=== PATIENT | male | born 1975 | race Caucasian/White ===

== ENCOUNTER 2018-03-22 08:40 | Outpatient (RCR) | payer OTHER ==
[~2018-03-22 08:40] MED LIST: ACHD5005 PO; ALBU0.8322 IH; ALPR0.5T7; FAMO20TA5 PO; GBPN100C; HYDR-3720 PO; LISI10TA2; LISI5TAB; MELO7.5T; METH500T35 PO; MTF500T PO; NF-ESOM40C PO; OMEP40CA36 PO; PNT40TEC PO; PRD20T PO; PRD5T PO; ROSU20TA PO; SCR1T1 PO; SULF1TAB35 PO; TRM50T PO; TYLOX; WRF10T
== END 2018-05-01 14:54 | disposition home or self-care (01) ==
PROVIDERS: ATTEND Nurse Practitioner Family
DX: M54.41 Lumbago with sciatica, right side (principal); M54.42 Lumbago with sciatica, left side; G89.29 Other chronic pain

== ENCOUNTER 2023-04-14 17:07 | Emergency (ER) | payer BC ==
[~2023-04-14] VITALS: Ht 175.5 cm; Wt 138.6 kg
[~2023-04-14 17:07] MED LIST changes: -ROSU20TA PO; +ROSU20TA2 PO
--- NOTE | 2023-04-14 17:28 | ED Lower Extremity ---
General Chief Complaint: Lower Extremity Stated Complaint: RIGHT LEG PAIN Nursing Triage Note: pt to ed with c/o intermittent right calf pain for a month and a half. states previous dvt about 12-13 years ago and he is just worried about the pain. Source: patient Exam Limitations: no limitations History of Present Illness Date Seen by Provider: Apr 14, 2023 Time Seen by Provider: 17:25 Initial Comments Patient is a 47-year-old male who presents to the ED with right calf pain. Right calf pain for the past month and a half. Denies of any specific injury. Patient states he has been doing calf raises but cannot recall any specific injury. States he had a DVT 12 to 14 years ago secondary injury. No known blood disorders. Denies any swelling, bruising. Does have varicose vein. Patient does have chronic nerve pain in his right leg secondary to previous injury. Denies fever, chills, chest pain, cough, shortness of breath. Allergies and Home Medications Allergies Coded Allergies: Shellfish (Verified Allergy, Unknown, 07/02/08) iodine (Verified Allergy, Unknown, 06/18/08) Patient Home Medication List Home Medication List Reviewed: Yes Hydrocodone Bit/Acetaminophen (Lortab 5 Mg Tablet) 1 Each Tablet, 1 EACH PO Q4H, (Reported) Entered as Reported by: MAKSIM DE GUZMAN on 10/12/13 1401 Lisinopril (Lisinopril) 10 Mg Tablet, 10, (Reported) Entered as Reported by: ZACHARY EPPS on 07/02/14 1824 Rosuvastatin Calcium (Crestor) 20 Mg Tablet, 20 MG PO HS, (Reported) Entered as Reported by: URBANO BELTRAN on 12/22/15 1459 Review of Systems Constitutional: No chills, No diaphoresis EENTM: No ear pain, No blurred vision, No double vision Respiratory: No cough Cardiovascular: No chest pain Gastrointestinal: No abdominal pain, No diarrhea, No nausea, No vomiting Genitourinary: No decreased output, No discharge Musculoskeletal: No back pain, No joint pain; muscle pain Skin: No change in color, No change in hair/nails All Other Systems Reviewed Negative Unless Noted: Yes Past Cutwzew-Plqkdz-Jwpibm Hx Patient Social History Tobacco Use?: No Substance use?: No Alcohol Use?: No Immunizations Up To Date Tetanus Booster (TDap): More than 5yrs Seasonal Allergies Seasonal Allergies: No Past Medical History Surgery/Hospitalization HX: dvt, back pain, dm appy Appendectomy, Orthopedic Hypertension Reproductive Disorders: No Gastroesophageal Reflux Chronic Back Pain Anxiety Family Medical History Heart Disease, Diabetes, Hypertension Physical Exam Vital Signs Vital Signs - First Documented 04/14/23 17:16 Temp 36.6 Pulse 89 Resp 18 B/P (MAP) 151/84 (106) Pulse Ox 98 Capillary Refill : Less Than 3 Seconds Height, Weight, BMI Height: 5'9" Weight: 355lbs. oz. [id number]; 44.00 BMI Method:Stated General Appearance: WD/WN, no apparent distress HEENT: PERRL/EOMI, normal ENT inspection, TMs normal, pharynx normal Neck: non-tender, full range of motion, supple Cardiovascular: regular rate, rhythm, no edema, no gallop, no JVD Respiratory: chest non-tender, lungs clear, normal breath sounds, no respir atory distress, no accessory muscle use Gastrointestinal: normal bowel sounds, non tender, soft Back: normal inspection, no CVA tenderness, no vertebral tenderness Legs: right leg other (No calf tenderness, swelling or bruising. 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, no motor/sensory deficits, alert, normal mood/affect, oriented x 3 Skin: normal color Progress/Results/Core Measures Results/Orders Lab Results Laboratory Tests Test 04/14/23 17:32 Range/Units D-Dimer < 0.27 0.00-0.49 UG/ML Sodium Level 139 135-145 MMOL/L Potassium Level 3.8 3.6-5.0 MMOL/L Chloride Level 104 98-107 MMOL/L Carbon Dioxide Level 22 21-32 MMOL/L Anion Gap 13 5-14 MMOL/L Blood Urea Nitrogen 15 7-18 MG/DL Creatinine 0.84 0.60-1.30 MG/DL Estimat Glomerular Filtration Rate 109 BUN/Creatinine Ratio 18 Glucose Level 198 H 70-105 MG/DL Calcium Level 8.8 8.5-10.1 MG/DL My Orders Orders - OBANDO,DEBBIE A PA Fibrin Degradation Products (04/14/23 17:24) Basic Metabolic Panel (04/14/23 17:24) Vital Signs/I&O 04/14/23 04/14/23 17:16 18:03 Temp 36.6 36.6 Pulse 89 89 Resp 18 18 B/P (MAP) 151/84 (106) 151/84 Pulse Ox 98 98 Blood Pressure Mean: 106 Departure Communication (PCP) Differential diagnoses muscle strain, DVT. Patient with history of DVT right leg. Calf pain for the past month and a half. No swelling bruising or redness. Due to his history of DVT and not having ultrasound on the weekends did or jennifer a D-dimer to rule out DVT. He has no swelling or bruising. No specific tenderness. Likely more calf strain. Patient denies any chest pain or shortness of breath. D-dimer was negative. Unlikely DVT and more of muscle strain. Recommend stretching, ice, anti-inflammatories. Follow-up your PCP in 2 to 3 days for reevaluation. Patient agrees a plan of action. Impression Primary Impression: Calf pain Disposition: HOME, SELF-CARE Condition: Stable Departure-Patient Inst. Decision time for Depature: 18:01 Referrals: ZOLTAN BAILON APRN (PCP/Family) Primary Care Physician Patient Instructions: Muscle Strain (DC) DEBBIE OBANDO Apr 14, 2023 17:28
[2023-04-14 17:49] LABS: POTASSIUM 3.8 MMOL/L (3.6-5.0)
[2023-04-14 17:50] LABS: CALCIUM 8.8 MG/DL (8.5-10.1)
[2023-04-14 17:54] LABS: CREATININE SERUM 0.84 MG/DL (0.60-1.30)
[2023-04-14 18:03] VITALS: BP 151/84
== END 2023-04-14 18:04 | disposition home or self-care (01) ==
LOC: EDUNIT# 17:07 → ER 17:12
DX: M79.661 Pain in right lower leg (principal)
CPT/HCPCS: 36415; 80048; 85379; 99281

== ENCOUNTER 2023-05-26 19:39 | Emergency (ER) | payer BC ==
[~2023-05-26] VITALS: Ht 175.3 cm; Wt 140.0 kg
[2023-05-26] MEDS ORDERED: NS IV 500 ML 500 ML IV ONE (20:00)
[2023-05-26] MEDS ORDERED: meTOprolol TARTRATE (IR) 25 MG TABLET PO ONE (20:00)
--- NOTE | 2023-05-26 20:12 | ED General ---
General Chief Complaint: Cardiac/General Problems Stated Complaint: BLOOD PRESSURE PROBLEMS Source of Information: Patient Exam Limitations: No Limitations History of Present Illness Date Seen by Provider: May 26, 2023 Time Seen by Provider: 19:53 Initial Comments Here with report of elevated blood pressure. States that he was out in [place] today and was transferring water from 1 [address] to the other and had walk his way through the swamp which was pretty significant physical activity. He got home and had 3 chili dogs. Afterwards he noted that his face got hot in his chest got hot and he checked his blood pressure and it was 160s over 100 range. He took his lisinopril 40 mg tablet which she is on for blood pressure. Usually takes that a little later in the evening. He presented here for concerns of high blood pressure and also concerns about dehydration since he was out in the field all day. States that he had this kind of flushness and hot feeling prior when he was dehydrated. Denies chest pain, nausea, vomiting, weakness or breathing problems. Denies headache or vision problems. Timing/Duration: 1 Hour Severity: Moderate Associated Systoms: No Chest Pain, No Cough, No Fever/Chills, No Headaches, No Nausea/Vomiting, No Shortness of Air, No Weakness Allergies and Home Medications Allergies Coded Allergies: Shellfish (Verified Allergy, Unknown, 07/02/08) iodine (Verified Allergy, Unknown, 06/18/08) Patient Home Medication List Home Medication List Reviewed: Yes Hydrocodone Bit/Acetaminophen (Lortab 5 Mg Tablet) 1 Each Tablet, 1 EACH PO Q4H, (Reported) Entered as Reported by: MAKSIM DE GUZMAN on 10/12/13 1401 Lisinopril (Lisinopril) 10 Mg Tablet, 10, (Reported) Entered as Reported by: ZACHARY EPPS on 07/02/14 1824 Rosuvastatin Calcium (Crestor) 20 Mg Tablet, 20 MG PO HS, (Reported) Entered as Reported by: URBANO BELTRAN on 12/22/15 6049 Review of Systems Review of Systems Constitutional: No chills, No fever EENTM: no symptoms reported Respiratory: no symptoms reported Cardiovascular: see HPI Gastrointestinal: see HPI Musculoskeletal: see HPI Skin: see HPI Past Mrldafw-Cnvlud-Zwsflf Hx Patient Social History Tobacco Use?: No Substance use?: No Immunizations Up To Date Tetanus Booster (TDap): More than 5yrs Influenza Vaccine Up-to-Date: No; Not Current First/Initial COVID19 Vaccinat: INITIAL DOSE COMPLETED Seasonal Allergies Seasonal Allergies: No Past Medical History Surgery/Hospitalization HX: dvt, back pain, dm, GASTRITIS appy Surgeries: Yes Appendectomy, Orthopedic Cardiac: Yes Hypertension Reproductive Disorders: No Gastrointestinal: Yes Gastroesophageal Reflux Musculoskeletal: Yes Chronic Back Pain Psychosocial: Yes Anxiety Family Medical History Reviewed Nursing Family Hx Heart Disease, Diabetes, Hypertension Physical Exam Vital Signs Vital Signs - First Documented 05/26/23 19:51 Temp 37.2 Pulse 93 Resp 18 B/P (MAP) 159/93 (115) Pulse Ox 99 O2 Delivery Room Air Capillary Refill : Height, Weight, BMI Height: 5'9" Weight: 355lbs. oz. 161.997561ma; 44.00 BMI Method:Stated General Appearance: No Apparent Distress, WD/WN Neck: Non Tender, Supple Respiratory: Lungs Clear, Normal Breath Sounds Cardiovascular: Regular Rate, Rhythm, No Murmur Gastrointestinal: Non Tender, Soft Extremity: Normal Range of Motion, Non Tender Neurologic/Psychiatric: Alert, Oriented x3 Skin: Warm/Dry, Other (Flush to face, ears and upper chest) Progress/Results/Core Measures Suspected Sepsis SIRS Temperature: Pulse: Respiratory Rate: Laboratory Tests 05/26/23 20:05: White Blood Count 8.3 Blood Pressure / Mean: Laboratory Tests 05/26/23 20:05: Creatinine 0.92, Platelet Count 312, Total Bilirubin 2.7H Results/Orders Lab Results Laboratory Tests Test 05/26/23 20:05 Range/Units White Blood Count 8.3 4.3-11.0 10^3/uL Red Blood Count 5.24 4.30-5.52 10^6/uL Hemoglobin 14.5 13.3-17.7 g/dL Hematocrit 44 40-54 % Mean Corpuscular Volume 84 80-99 fL Mean Corpuscular Hemoglobin 28 25-34 pg Mean Corpuscular Hemoglobin Concent 33 32-36 g/dL Red Cell Distribution Width 14.4 10.0-14.5 % Platelet Count 312 130-400 10^3/uL Mean Platelet Volume 9.1 9.0-12.2 fL Immature Granulocyte % (Auto) 0 % Neutrophils (%) (Auto) 60 42-75 % Lymphocytes (%) (Auto) 31 12-44 % Monocytes (%) (Auto) 7 0-12 % Eosinophils (%) (Auto) 1 0-10 % Basophils (%) (Auto) 1 0-10 % Neutrophils # (Auto) 5.0 1.8-7.8 10^3/uL Lymphocytes # (Auto) 2.6 1.0-4.0 10^3/uL Monocytes # (Auto) 0.6 0.0-1.0 10^3/uL Eosinophils # (Auto) 0.1 0.0-0.3 10^3/uL Basophils # (Auto) 0.1 0.0-0.1 10^3/uL Immature Granulocyte # (Auto) 0.0 0.0-0.1 10^3/uL Sodium Level 138 135-145 MMOL/L Potassium Level 4.3 3.6-5.0 MMOL/L Chloride Level 101 98-107 MMOL/L Carbon Dioxide Level 21 21-32 MMOL/L Anion Gap 16 H 5-14 MMOL/L Blood Urea Nitrogen 15 7-18 MG/DL Creatinine 0.92 0.60-1.30 MG/DL Estimat Glomerular Filtration Rate 104 BUN/Creatinine Ratio 16 Glucose Level 146 H 70-105 MG/DL Calcium Level 9.7 8.5-10.1 MG/DL Corrected Calcium 8.5-10.1 MG/DL Total Bilirubin 2.7 H 0.1-1.0 MG/DL Aspartate Amino Transf (AST/SGOT) 35 H 5-34 U/L Alanine Aminotransferase (ALT/SGPT) 49 0-55 U/L Alkaline Phosphatase 55 40-136 U/L Troponin I < 0.028 <0.028 NG/ML Total Protein 7.9 6.4-8.2 GM/DL Albumin 4.9 H 3.2-4.5 GM/DL My Orders Orders - ABHISHEK MEDINA MD Ed Iv/Invasive Line Start (05/26/23 20:00) Ekg Tracing (05/26/23 20:00) Monitor-Rhythm Ecg Trace Only (05/26/23 20:00) Cbc And Automated Diff (05/26/23 20:00) Comprehensive Metabolic Panel (05/26/23 20:00) Troponin I Demian (05/26/23 20:00) Ed Iv/Invasive Line Start (05/26/23 20:00) Ns Iv 500 Ml (Ns Iv 500 Ml) (05/26/23 20:00) Metoprolol Tartrate (Ir) Tab (05/26/23 20:00) Medications Given in ED Current Medications Medications Dose Ordered Sig/Yoav Route Start Time Stop Time Status Last Admin Dose Admin Metoprolol Tartrate 25 mg ONCE ONCE PO 05/26/23 20:00 05/26/23 20:03 DC 05/26/23 20:15 25 MG Sodium Chloride 500 ml @ 0 mls/hr Q0M ONCE IV 05/26/23 20:00 05/26/23 20:03 DC 05/26/23 20:15 999 MLS/HR Vital Signs/I&O 05/26/23 19:51 Temp 37.2 Pulse 93 Resp 18 B/P (MAP) 159/93 (115) Pulse Ox 99 O2 Delivery Room Air Capillary Refill : Progress Note : Progress Note Seen and evaluated. IV, labs including CBC, CMP and troponin ordered. We will get EKG. Normal saline 500 mL bolus and metoprolol 25 mg p.o. Monitor patient. Differential diagnosis includes uncontrolled hypertension, cardiac event, dehydration, electrolyte abnormality 2012: EKG normal as noted below. 100: CBC reviewed and grossly normal. CMP reviewed and shows mildly elevated glucose with normal electrolytes and elevated total bilirubin which seems chronic. Troponin negative. Patient's blood pr essure currently 120s over 70s to the 130s over 80s and he is feeling much better. He does admit to eating potato chips as well today. I believe his hypertension is related to elevated sodium with his diet today which is not his normal diet. Overall he feels better. Discharged home with return precautions. Patient verbalized understanding instructions and agreement with plan. ECG Initial ECG Impression Date: May 26, 2023 Initial ECG Impression Time: 20:09 Initial ECG Rate: 88 Initial ECG Rhythm: Normal Sinus Initial ECG Impression: Normal Comment Sinus rhythm with occasional premature atrial contraction. Normal but rightward axis. No evidence of ST elevation [place]. Interpreted by me. Departure Impression Primary Impression: High blood pressure Qualified Codes: I10 - Essential (primary) hypertension Additional Impression: Total bilirubin, elevated Disposition: 01 HOME, SELF-CARE Condition: Improved Departure-Patient Inst. Decision time for Depature: 21:05 Referrals: ZOLTAN BAILON APRN (PCP) Primary Care Physician Patient Instructions: High blood pressure in adults, Low Salt Diet Add. Discharge Instructions: All discharge instructions reviewed with patient and/or family. Voiced understanding. Drink an adequate amount of fluids and eat a normal diet that is low in salt. Follow-up with your doctor this week for recheck and further evaluation. Return for worse pain, fever, vomiting, weakness, breathing problems or other concerns as needed. Your total bilirubin was elevated slightly over your normal level and you can get this rechecked with your doctor. ABHISHEK MEDINA MD May 26, 2023 20:12
[2023-05-26 20:14] LABS: BASOPHILS # (AUTO) 0.1 10^3/uL (0.0-0.1); BASOPHILS % (AUTO) 1 % (0-10); EOSINOPHILS # (AUTO) 0.1 10^3/uL (0.0-0.3); EOSINOPHILS % (AUTO) 1 % (0-10); HEMATOCRIT 44 % (40-54); HEMOGLOBIN 14.5 g/dL (13.3-17.7); LYMPHOCYTES # (AUTO) 2.6 10^3/uL (1.0-4.0); LYMPHOCYTES % (AUTO) 31 % (12-44); MEAN CORPUSCULAR HEMOGLOBIN 28 pg (25-34); MEAN CORPUSCULAR HGB CONC 33 g/dL (32-36); MEAN CORPUSCULAR VOLUME 84 fL (80-99); MEAN PLATELET VOLUME 9.1 fL (9.0-12.2); MONOCYTES # (AUTO) 0.6 10^3/uL (0.0-1.0); MONOCYTES % (AUTO) 7 % (0-12); NEUTROPHILS % (AUTO) 60 % (42-75); PLATELET COUNT 312 10^3/uL (130-400); WHITE BLOOD COUNT 8.3 10^3/uL (4.3-11.0)
[2023-05-26 20:26] LABS: ALBUMIN 4.9 GM/DL (3.2-4.5); CHLORIDE 101 MMOL/L (98-107); POTASSIUM 4.3 MMOL/L (3.6-5.0); SODIUM 138 MMOL/L (135-145)
[2023-05-26 20:28] LABS: CALCIUM 9.7 MG/DL (8.5-10.1)
[2023-05-26 20:29] LABS: GLUCOSE 146 MG/DL (70-105); TOTAL PROTEIN 7.9 GM/DL (6.4-8.2)
[2023-05-26 20:30] LABS: CARBON DIOXIDE 21 MMOL/L (21-32)
[2023-05-26 20:31] LABS: BILIRUBIN,TOTAL 2.7 MG/DL (0.1-1.0)
[2023-05-26 20:32] LABS: ALKALINE PHOSPHATASE 55 U/L (40-136)
[2023-05-26 20:33] LABS: CREATININE SERUM 0.92 MG/DL (0.60-1.30); GFR ESTIMATED 104
[2023-05-26 20:34] LABS: BUN/CREATININE RATIO 16
[2023-05-26 20:35] LABS: ALANINE AMINOTRANSFERASE 49 U/L (0-55)
[2023-05-26 21:19] VITALS: BP 139/81
== END 2023-05-26 21:19 | disposition home or self-care (01) ==
LOC: EDUNIT# 19:39 → ER 19:41
DX: I10 Essential (primary) hypertension (principal); E80.7 Disorder of bilirubin metabolism, unspecified; E11.9 Type 2 diabetes mellitus without complications; Z28.311 Partially vaccinated for COVID-19
CPT/HCPCS: 36415; 80053; 84484; 85025; 93005; 93041

== ENCOUNTER 2023-06-14 13:40 | Outpatient (RCR) | payer BC | END 2023-06-19 | disposition home or self-care (01) | PROVIDERS: ATTEND Nurse Practitioner Family | DX: M79.2 Neuralgia and neuritis, unspecified (principal); M21.371 Foot drop, right foot; M54.50 Low back pain, unspecified; I10 Essential (primary) hypertension; E11.9 Type 2 diabetes mellitus without complications ==

== ENCOUNTER 2023-06-21 13:47 | Outpatient (RCR) | payer BC | END 2023-07-16 16:04 | disposition home or self-care (01) | PROVIDERS: ATTEND Nurse Practitioner Family | DX: M79.2 Neuralgia and neuritis, unspecified (principal); M21.371 Foot drop, right foot; M54.50 Low back pain, unspecified; I10 Essential (primary) hypertension; E11.9 Type 2 diabetes mellitus without complications ==